=== PATIENT | male | born 2000 | race Caucasian/White ===

== ENCOUNTER 2020-01-15 07:48 | Emergency (ER) | payer MEDICAID ==
[~2020-01-15] VITALS: Ht 170.2 cm; Wt 84.4 kg
[2020-01-15 07:54] VITALS: BP_SYST 155
--- NOTE | 2020-01-15 07:57 | NUR ---
Patient to ER bed 4 to gown for evaluation. Side rails up. Report given to JAYLA Vang.
--- NOTE | 2020-01-15 08:05 | NUR ---
Pt came to ER after hurting R shoulder last night when sneezing. Pt rates pain 10/10 at this time, resting in [facility], awaiting MD.
--- NOTE | 2020-01-15 08:06 | NUR ---
ER at bedside examining patient.
[2020-01-15] MEDS ORDERED: DIAZEPAM 5 MG TABLET (VALIUM) PO ONE (08:15)
[2020-01-15] MEDS ORDERED: DIAZEPAM 10 MG/2 ML DISP.SYRIN IM ONE (08:15)
[2020-01-15] MEDS ORDERED: KETOROLAC TROMETHAMINE 60 MG/2 ML VIAL IM ONE (08:45)
--- NOTE | 2020-01-15 09:00 | NUR ---
Pt reports pain improving, and ROM improvement
[2020-01-15 09:40] VITALS: BP_SYST 155
--- NOTE | 2020-01-15 09:40 | NUR ---
Patient given written and verbal discharge instructions and verbalizes understanding. ER MD discussed with patient the results and treatment provided. Patient in stable condition. ID arm band removed. Rx of Valium and Motrin given. Patient educated on pain management and to follow up with PMD. Pain Scale 3. Opportunity for questions provided and answered. Medication side effect fact sheet provided.
== END 2020-01-15 09:40 | disposition home or self-care (01) ==
LOC: SED 07:48
DX: M62.838 Other muscle spasm (principal)
CPT/HCPCS: 96372; 99283; J1885